=== PATIENT | male | born 1995 | race Caucasian/White ===

== ENCOUNTER 2020-10-25 14:06 | Outpatient (REF) | payer OTHER, SELFPAY | END 2020-10-25 14:07 | disposition home or self-care (01) | LOC: HO.LAB 14:06 | PROVIDERS: Visit Provider Nurse Practitioner Family | DX: R10.9 Unspecified abdominal pain (principal); R11.2 Nausea with vomiting, unspecified; Z20.822 Contact with and (suspected) exposure to COVID-19 | CPT/HCPCS: 36415; U0003 ==

== ENCOUNTER 2020-10-25 14:14 | Outpatient (REF) | payer OTHER, SELFPAY | END 2020-10-25 14:15 | disposition home or self-care (01) | LOC: HO.HMGCLDS 14:14 | PROVIDERS: Visit Provider Nurse Practitioner Family | DX: Z13.89 Encounter for screening for other disorder (principal) ==

== ENCOUNTER 2020-10-27 11:55 | Outpatient (REF) | payer OTHER, SELFPAY ==
[2020-10-27 14:05] LABS: MANUAL DIFF FLAG NO
[2020-10-27 14:18] LABS: Basophils Percent Auto 0.4 % (0-2); Eosinophils Absolute Auto 0.1 X10*3/uL (0.0-0.4); Eosinophils Percent Auto 1.3 % (0-4); Hematocrit 45.7 % (42-52); Hemoglobin 16.4 g/dl (14.0-18.0); Imm Gran Abs Auto 0.03 X10*3/uL (0.00-0.03); Imm Gran Pct Auto 0.3 % (0.0-0.4); Lymphocytes Absolute Auto 1.9 X10*3/uL (1.2-4.9); Lymphocytes Percent Auto 20.6 % (20-40); Mean Corpuscular HGB Conc 35.9 g/dl (31.0-36.0); Mean Corpuscular Hemoglobin 32.4 pg (27.0-33.0); Mean Corpuscular Volume 90.3 fL (80-98); Mean Platelet Volume 11.1 fL (9.4-12.4); Monocytes Absolute Auto 0.9 X10*3/uL (0.1-1.2); Monocytes Percent Auto 9.9 % (2-11); Neutrophils Absolute Auto 6.3 X10*3/uL (2.0-8.3); Neutrophils Percent Auto 67.5 % (45-73); Platelet Count 289 X10*3/uL (160-400); Red Blood Count 5.06 X10*6/uL (4.60-5.80); White Blood Count 9.4 X10*3/uL (4.8-10.8)
[2020-10-27 14:41] LABS: Alanine Aminotransferase 35 U/L (0-40); Albumin Level 5.1 g/dL (3.5-5.0); Alkaline Phosphatase 84 U/L (39-117); Amylase 30 U/L (28-100); Anion Gap 19 (12-20); Aspartate Amino Transferase 25 U/L (5-37); Bilirubin Total 1.9 mg/dL (0.0-1.0); Blood Urea Nitrogen 15 mg/dL (9-16); Calcium 9.8 mg/dL (8.4-10.2); Carbon Dioxide 26 mmol/L (22-29); Chloride 100 mmol/L (96-108); Estimated Glomerular Filt Rate > 60; Glucose Random 68 mg/dL (60-115); Lipase 10 U/L (8-78); Potassium 4.5 mmol/l (3.3-5.1); Sodium 140 mmol/L (135-145); Total Protein 7.5 g/dL (6.5-8.0)
== END 2020-10-27 11:56 | disposition home or self-care (01) ==
LOC: HO.HMGCLDS 11:55
PROVIDERS: Visit Provider Nurse Practitioner Family
DX: R10.9 Unspecified abdominal pain (principal)
CPT/HCPCS: 36415; 80053; 82150; 83690; 85025

== ENCOUNTER 2022-05-09 10:57 | Outpatient (REF) | payer SELFPAY ==
[2022-05-09 11:22] LABS: Binax Internal Control QC Valid; Binax Now Covid-19 Ag Negative (Negative)
== END 2022-05-09 10:58 | disposition home or self-care (01) ==
LOC: HO.HMGCLDS 10:57
PROVIDERS: Visit Provider Nurse Practitioner Family
DX: Z20.822 Contact with and (suspected) exposure to COVID-19 (principal); J02.9 Acute pharyngitis, unspecified
CPT/HCPCS: 87811; C9803

== ENCOUNTER 2023-11-14 08:46 | Outpatient (AMB) | payer OTHER, SELFPAY ==
--- NOTE | 2023-11-14 08:42 | AM.OFFWIN_ITS ---
Intake Vital Signs 11/14/23 08:54 Height 5 ft 6 in Weight 125 lb BMI 20.2 BP 130/70 Blood Pressure Location Lt brachial Position Sitting Pulse 82 Pulse Source Pulse Oximeter Temp 99.7 F Temp Source Temporal Artery Scan Pulse Oximetry (%) 96 Oxygen Delivery Method Room Air Intake Visit Reasons: EP chills not holding liquids down [id number] Intake Note: pt is here today for chills not holding liquid down started yesterday Patient Tobacco Use Status: Current everyday Tobacco user Allergies No Known Allergies Allergy (Verified 11/14/23 08:43) Do you need a note to return to daycare/school/sports/work: Yes HPI HPI Comments History of Present Illness Details Patient is a 28yo M who presents to office with flu like illness He said onset yesterday am He said started as chest congestion yesterday but progressed to fever, fatigue, body aches, dizziness He admits to congestion, ringing in R side > L side + continual cough without CP or SOB No ST He has tried Alkaselzer PM without relief Admits to sick contacts + nausea and vomiting; no diarrhea. Star sherrie this am Normal urine output but said burning this morning He said mild abdominal discomfort, no sharp pain PFSH Family History Father Hypertension Maternal Grandmother Heart disease Social History Alcohol intake: former Year quit: 2020 Patient Tobacco Use Status: Current everyday Tobacco user Cigarette Packs Per Day: 1 Years Smoked: 10 years Review of Systems Const Reports body aches, Reports chills, Reports fatigue and Reports fever(s) Eyes Denies blurry vision ENT Denies ear discharge, Reports otalgia, Reports nasal congestion, Denies sinus pressure, Denies sore throat and Denies throat swelling Card Denies chest pain and Denies dyspnea Resp Reports chest congestion, Reports cough and Denies dyspnea GI Reports abdominal pain, Denies melena, Denies hematochezia, Denies constipation, Denies diarrhea, Reports nausea and Reports vomiting Reports dysuria, Denies urinary frequency and Denies urinary hesitancy Musc Reports myalgias Endo Reports fatigue Aller/Immun Denies throat swelling Physical Exam Vital Signs: Last Vital Signs Temp 99.7 F 11/14/23 08:54 Pulse 82 11/14/23 08:54 BP 130/70 11/14/23 08:54 Pulse Ox 96 11/14/23 08:54 Oxygen Delivery Method Room Air 11/14/23 08:54 BMI result Body Mass Index 20.2 General: Non-toxic, NAD. Speaking full sentences. Skin: Warm dry throughout Eye: EOMI HENT: Airway patent. Uvula midline. No pharyngeal erythema or edema. No CERTIFIED ATHLETIC TRAINER. Bilateral canals clear. TM non-erythematous, non-bulging. No TM perforation or hemotympanum noted. Respiratory: CTA bilaterally. No wheezes, rales or rhonchi Cardiac: RRR. No murmur Abdominal: BS present x 4 quadrants. No rebound or guarding. No palpable mass or visualized pulsation. MSK: Full ROM extremities. Neurology: A/O No aphasia or facial droop. Gait without abnormality Psych: Good mood and affect Results AMB Urinalysis, Automated UA Leukoctes 0 Filemon/uL Last Edit by Shantelle Olson CMA on 11/14/23 09:11 UA Nitrite Negative Last Edit by Shantelle Olson CMA on 11/14/23 09:11 UA Urobilinogen 0.2 mg/dL Last Edit by Shantelle Olson CMA on 11/14/23 09:11 UA Protein 0 mg/dL Last Edit by Shantelle Olson CMA on 11/14/23 09:11 UA pH 8.0 Last Edit by Shantelle Olson CMA on 11/14/23 09:11 UA Blood 0 Kavon/uL Last Edit by Shantelle Olson CMA on 11/14/23 09:11 UA Specific [place] 1.010 Last Edit by Shantelle Olson CMA on 11/14/23 09:1 1 UA Ketone Positive Last Edit by Shantelle Olson CMA on 11/14/23 09:11 UA Bilirubin 0 mg/dL Last Edit by Shantelle Olson CMA on 11/14/23 09:11 UA Glucose 0 mg/dL Last Edit by Shantelle Olson CMA on 11/14/23 09:11 Assessment & Plan Assessment & Plan (1) Influenza-like illness: Code(s): J11.1 - Influenza due to unidentified influenza virus with other respiratory manifestations Plan: Patient seen and evaluated. +low grade fever on exam U/A obtained due to dysuria: + ketones butn= no glucose, leuks, nirates. No culture indicated. Discussed hydration with patient. Lungs CTA without acute abdomen on exam Flu/rsv/covid swab obtained Discussed with pt that his abdomen is not acute at this time and most likely symptoms are secondary to viral illness. He was encouraged to take zofran as presxribed for nausea, increase fluids, follow bland diet and rest with fever control ny new, worsening symptoms go to ED Patient gave verbal understanding and had no additional questions or concerns at time of discharge All questions answered (2) Dysuria: Code(s): R30.0 - Dysuria Plan: see above Orders: Orders SARS-CoV2/FLU/RSV Today J11.1 - Influenza due to unidentified influenza virus with other respiratory manifestations AMB Urinalysis Automated Today Z13.9 - Encounter for screening, unspecified Medications: New ondansetron 4 mg PO Q8H PRN 10 tabs 0RF nausea and vomiting Coding Level of Care Code Est Pt Level 3 (60530) Diagnoses Influenza-like illness J11.1 Dysuria R30.0
[2023-11-14 08:54] VITALS: BP 130/70; PULSE 82; TEMP 37.6; O2SAT 96; BMI 20.2
== END 2023-11-14 09:14 | disposition home or self-care (01) ==
PROVIDERS: PCP Nurse Practitioner Family; Visit Provider Physician Assistant
DX: J11.1 Influenza due to unidentified influenza virus with other respiratory manifestations (principal); R30.0 Dysuria
CPT/HCPCS: 81003; 99213

== ENCOUNTER 2023-11-14 11:43 | Outpatient (REF) | payer OTHER, SELFPAY ==
[2023-11-14 12:55] LABS: Influenza A PCR POSITIVE (Negative); Influenza B PCR NEGATIVE (Negative); Resp Syncy Virus RNA Qual PCR NEGATIVE (Negative); SARS COV2 PCR INHOUSE NEGATIVE (Negative)
== END 2023-11-14 11:44 | disposition home or self-care (01) ==
LOC: HO.HMGCLNP 11:43
PROVIDERS: Visit Provider Physician Assistant
DX: Z11.52 Encounter for screening for COVID-19 (principal); Z20.822 Contact with and (suspected) exposure to COVID-19; J11.1 Influenza due to unidentified influenza virus with other respiratory manifestations
CPT/HCPCS: 0241U